=== PATIENT | male | born 1955 | race Caucasian/White ===

== ENCOUNTER → 2016-08-05 | Outpatient (CLI) | payer BC ==
[~2016-08-05] MED LIST: AGM875 PO; AMX500 PO; LRT5 PO; PRLSR20 PO
--- NOTE | 2016-08-05 14:53 | DIAGNOSTIC IMAGING REPORT ---
LUMBAR SPINE MIN 4 VIEWS CLINICAL HISTORY: SUBACUTE LUMBAR RADICULOPATHY COMPARISON STUDY: No previous studies for comparison. FINDINGS: There is a mild lumbar levoscoliosis. No fractures are visualized. There are multilevel degenerative changes with disc space narrowing at the L3-4, L4-5 level and L5-S1 levels. There is mild L4-5 and L5-S1 facet joint arthropathy. IMPRESSION: Scoliosis and moderate degenerative change. No acute fractures. Electronically signed by: Robinson Chau M.D. 08/05/2016 2:51 PM Dictated Date/Time: 08/05/2016 2:50 PM
--- NOTE | 2016-08-05 14:54 | DIAGNOSTIC IMAGING REPORT ---
LEFT KNEE 4 VIEWS INCLUDING BILATERAL STANDING AP VIEWS CLINICAL HISTORY: LEFT KNEE PAIN/OSTEOARTHRITIS COMPARISON: None. DISCUSSION: There are moderate osteoarthritic changes with marked narrowing of the medial joint compartment. There are small dorsal patellar spurs. There are no acute fractures. No destructive lesions are evident. Medial joint compartment narrowing the right knee is also evident although less pronounced. IMPRESSION: Moderately advanced osteoarthritic change. No acute fractures. Electronically signed by: Robinson Chau M.D. 08/05/2016 2:53 PM Dictated Date/Time: 08/05/2016 2:52 PM
== END | disposition home or self-care (01) ==
LOC: C.RDSM 15:15
PROVIDERS: ATTEND Physical Medicine & Rehabilitation Sports Medicine
DX: M54.16 Radiculopathy, lumbar region (principal); M17.9 Osteoarthritis of knee, unspecified; M41.9 Scoliosis, unspecified

== ENCOUNTER → 2016-08-05 | Outpatient (CLI) | payer BC ==
[2016-08-05 20:39] LABS: LYME DISEASE AB IGG POS (NEG); LYME DISEASE AB IGM POS (NEG)
[2016-08-11 05:12] LABS: 18KDIGG BAND REACTIVE (NONREACTIVE); 23KDIGG BAND REACTIVE (NONREACTIVE); 23KDIGM BAND REACTIVE (NONREACTIVE); 28KDIGG BAND NONREACTIVE (NONREACTIVE); 30KDIGG BAND NONREACTIVE (NONREACTIVE); 39KDIGG BAND REACTIVE (NONREACTIVE); 39KDIGM BAND NONREACTIVE (NONREACTIVE); 41KDIGG BAND NONREACTIVE (NONREACTIVE); 41KDIGM BAND REACTIVE (NONREACTIVE); 45KDIGG BAND NONREACTIVE (NONREACTIVE); 58KDIGG BAND REACTIVE (NONREACTIVE); 66KDIGG BAND REACTIVE (NONREACTIVE); 93KDIGG BAND REACTIVE (NONREACTIVE)
== END | disposition home or self-care (01) ==
LOC: C.LAB1850 15:19
PROVIDERS: ATTEND Physical Medicine & Rehabilitation Sports Medicine
DX: M17.0 Bilateral primary osteoarthritis of knee (principal); M54.16 Radiculopathy, lumbar region; M79.604 Pain in right leg

== ENCOUNTER 2020-09-05 04:48 | Inpatient (IN) ==
[2020-09-05] MEDS ORDERED: ONDANSETRON INJ 2 MG/ML 2 ML VIAL IV STA (04:54)
[2020-09-05] MEDS ORDERED: SODIUM CHLORIDE 0.9% 1000ML 1,000 ML IV STA (04:54)
[2020-09-05] MEDS ORDERED: MoRPHine SULFATE 4 MG/ML 1 ML CARP\\VIAL IV STA ×2 (05:01→05:30)
[2020-09-05] MEDS ORDERED: KETOROLAC TROMETHAMINE 15 MG/ML VIAL IV STA (05:01)
--- NOTE | 2020-09-05 05:16 | Emergency Department Note ---
History of Present Illness General Chief complaint: Abdominal Pain Stated complaint: LT SIDED ABD PAIN Time Seen by Provider: 09/05/20 05:01 History of Present Illness Maximum Pain Intensity: 10 This 64-year-old presents to the ER complaining of sudden onset of left lower abdominal pain Location: Left lower quadrant Quality: Sharp Severity: Moderate Duration: Tonight Timing: Tonight Context: Pain persisted and patient given Modifying factors: better with nothing; worse with nothing No history of kidney stones or diverticulitis. Patient denies chest pain, dyspnea, fevers, vomiting, diarrhea, testicular pain, penile pain, back pain, flank pain, urinary symptoms. Home Medications Medication Instructions Recorded Confirmed Type omeprazole 20 mg PO UD PRN 04/03/18 09/05/20 History Allergies Allergy/AdvReac Type Severity Reaction Status Date / Time No Known Allergies Allergy Mild Verified 09/05/20 07:26 Past Med/Surg History Medical History GERD (gastroesophageal reflux disease) CONTROLLED Gout Hiatal hernia Hypertension "BORDERLINE"- NO MEDS Hypertriglyceridemia Obesity ZAIDA (obstructive sleep apnea) Osteoarthritis Umbilical hernia Surgical History H/O umbilical hernia repair History of arthroscopy LEFT KNEE History of cholecystectomy History of herniorrhaphy UMBILICAL Family History Mother Lung cancer Father Unknown cause of injury unknown cause of Social History Smoking Status: Never smoker Tobacco Type: Smokeless Tobacco (Dip or Chew) Second Hand Exposure: No; Hx Alcohol Use: Yes Alcohol type: beer Alcohol Intake Frequency Comment: couple of beers per day, 12 cans roughly on the weekend Hx Substance Use: No Preferred Language: Sierra Leonean Communication Ability: Effective Visual Impairment: No Limitations [place] Required: No Beliefs That Will Affect Care: None Current Living Situation: Spouse Feels Safe at Home: Yes Assistive Devices: Brace/Splint/Immobilizer and Walker Review of Systems A total of 10 systems reviewed and were otherwise negative Physical Exam Vital Signs Vital Signs - 24 hr 09/05/20 04:51 09/05/20 05:18 09/05/20 05:38 Temperature 36.2 C L Temperature Source Temporal Artery Scan Pulse Rate 85 74 Pulse Rate [Apical] Pulse Rate from SpO2 Sensor 75 Respiratory Rate 22 16 Respiratory Effort / Characteristics Respiratory Depth Normal Respiratory Pattern Blood Pressure 170/88 H Blood Pressure [Right Arm] Blood Pressure Mean 115 Blood Pressure Mean [Right Arm] Blood Pressure Position [Right Arm] Pulse Oximetry 96 97 91 Oxygen Delivery Method Room Air Room Air Oxygen Flow Rate Sepsis New/Unexplained Change in Mental Status N/A Sepsis Action Taken by Nursing No Action Required 09/05/20 05:55 09/05/20 05:58 09/05/20 06:00 Temperature Temperature Source Pulse Rate 67 66 Pulse Rate [Apical] 70 Pulse Rate from SpO2 Sensor 66 66 Respiratory Rate 19 16 17 Respiratory Effort / Characteristics Non-Labored Spontaneous Respiratory Depth Normal Respiratory Pattern Regular Blood Pressure 160/96 H 165/96 H Blood Pressure [Right Arm] 160/96 H Blood Pressure Mean 117 119 Blood Pressure Mean [Right Arm] 117 Blood Pressure Position [Right Arm] Pulse Oximetry 93 93 90 Oxygen Delivery Method Room Air Oxygen Flow Rate Sepsis New/Unexplained Change in Mental Status Sepsis Action Taken by Nursing 09/05/20 06:17 09/05/20 06:19 09/05/20 06:30 Temperature Temperature Source Pulse Rate 67 70 Pulse Rate [Apical] 65 Pulse Rate from SpO2 Sensor 67 69 Respiratory Rate 18 16 14 Respiratory Effort / Characteristics Non-Labored Spontaneous Respiratory Depth Normal Respiratory Pattern Regular Blood Pressure 126/77 Blood Pressure [Right Arm] 126/77 Blood Pressure Mean 93 Blood Pressure Mean [Right Arm] 93 Blood Pressure Position [Right Arm] Lying Pulse Oximetry 92 93 96 Oxygen Delivery Method Nasal Cannula Oxygen Flow Rate 2 Sepsis New/Unexplained Change in Mental Status Sepsis Action Taken by Nursing 09/05/20 07:00 09/05/20 07:01 09/05/20 07:30 Temperature Temperature Source Pulse Rate 67 67 63 Pulse Rate [Apical] Pulse Rate from SpO2 Sensor 67 66 64 Respiratory Rate 18 14 12 Respiratory Effort / Characteristics Respiratory Depth Respiratory Pattern Blood Pressure 136/76 Blood Pressure [Right Arm] Blood Pressure Mean 96 Blood Pressure Mean [Right Arm] Blood Pressure Position [Right Arm] Pulse Oximetry 93 95 94 Oxygen Delivery Method Oxygen Flow Rate Sepsis New/Unexplained Change in Mental Status Sepsis Action Taken by Nursing VITALS: Vitals are noted on the nurse's note and reviewed by myself. Vital signs stable. GENERAL: Pleasant male, in no acute distress, nondiaphoretic, well-developed well-nourished. SKIN: Capillary reflex less than 2 seconds. HEENT: Normocephalic. PERRLA. EOMI. Nares patent. Mucous membranes moist. Neck is supple without nuchal rigidity. HEART: Regular rate and rhythm LUNGS: Clear to auscultation bilaterally without wheezes, rales or rhonchi. No retractions or accessory muscle use. ABDOMEN: Positive bowel sounds x 4. Normal tympanic percussion. Soft, nontender, without masses or organomegaly. Cadet sign negative. No guarding or rebound tenderness. No CVA tenderness MUSCULOSKELETAL: No gross musculoskeletal defects. NEURO: Patient was alert and oriented to person place and time. No focal neurological deficits. Course Administered Medications Discontinued Medications Hydromorphone HCl (Hydromorphone Inj 1 Mg/Ml Syringe) 1 mg IV NOW STA Stop: 09/05/20 07:05 Last Admin: 09/05/20 07:12 Dose: 1 mg Documented by: [id number] Sodium Chloride (Nss 1000ml) 1,000 mls @ 999 mls/hr IV .Q1H1M STA Stop: 09/05/20 05:54 Last Infusion: 09/05/20 06:12 Dose: 0 mls/hr Documented by: [id number] Admin: 09/05/20 05:11 Dose: 999 mls/hr Documented by: [id number] Ketorolac Tromethamine (Ketorolac Tromethamine 15 Mg/Ml Vial) 10 mg IV NOW STA Stop: 09/05/20 05:02 Last Admin: 09/05/20 05:11 Dose: 10 mg Documented by: [id number] Morphine Sulfate (Morphine Sulfate 4 Mg/Ml 1 Ml Carp\\Vial) 4 mg IV NOW STA Stop: 09/05/20 05:02 Last Admin: 09/05/20 05:11 Dose: 4 mg Documented by: [id number] Morphine Sulfate (Morphine Sulfate 4 Mg/Ml 1 Ml Carp\\Vial) 4 mg IV NOW STA Stop: 09/05/20 05:31 Last Admin: 09/05/20 05:33 Dose: 4 mg Documented by: [id number] Ondansetron HCl (Ondansetron Inj 2 Mg/Ml 2 Ml Vial) 4 mg IV NOW STA Stop: 09/05/20 04:55 Last Admin: 09/05/20 05:11 Dose: 4 mg Documented by: [id number] Medical Decision Making Medical Records Attestation: I reviewed the patient's medical records. Home Medications Current Medication List: was personally reviewed by me Laboratory Data Attestation: I reviewed the patient's lab results. Result diagrams: 09/05/20 05:01 09/05/20 05:01 Lab Results 09/05/20 09/05/20 09/05/20 Range/Units 05:01 05:01 05:01 WBC 8.15 (4.8-10.8) K/uL RBC 5.09 (4.7-6.1) M/uL Hgb 16.3 (14.0-18.0) g/dL Hct 44.2 (42-52) % MCV 86.8 (80-100) fL MCH 32.0 (25-34) pg MCHC 36.9 H (32-36) g/dL RDW Std Deviation 41.1 (36.4-46.3) fL RDW Coeff of [place] 12.8 (11.5-14.5) % Plt Count 272 (130-400) K/uL MPV 9.7 (7.4-10.4) fL Immature Gran % (Auto) 0.2 % Neut % (Auto) 81.9 % Lymph % (Auto) 10.1 % Will % (Auto) 7.2 % Eos % (Auto) 0.4 % Baso % (Auto) 0.2 % Neut # (Auto) 6.67 H (1.4-6.5) K/uL Lymph # (Auto) 0.82 L (1.2-3.4) K/uL Will # (Auto) 0.59 (0.11-0.59) K/uL Eos # (Auto) 0.03 (0-0.5) K/uL Baso # (Auto) 0.02 (0-0.2) K/uL Immature Gran # (Auto) 0.02 (0.00-0.02) K/uL Sodium 137 (136-145) mmol/L Potassium 4.4 (3.5-5.1) mmol/L Chloride 105 (98-107) mmol/L Carbon Dioxide 26 (21-32) mmol/L Anion Gap 6.0 (3-11) BUN 13 (7-18) mg/dl Creatinine 1.17 (0.6-1.4) mg/dl Est Cr Clr Drug Dosing 87.1 ml/min Est GFR ( Amer) 76.4 Est GFR (Non-Af Amer) 66.0 BUN/Creatinine Ratio 11.4 (10-20) Glucose 131 H (70-99) mg/dl Calcium 9.1 (8.5-10.1) mg/dl Total Bilirubin 1.0 (0.2-1) mg/dl AST 42 H (15-37) U/L ALT 79 H (12-78) U/L Alkaline Phosphatase 86 (45-117) U/L Total Protein 9.1 H (6.4-8.2) gm/dl Albumin 4.3 (3.4-5.0) gm/dl Globulin 4.8 H (2.5-4.0) gm/dl Albumin/Globulin Ratio 0.9 (0.9-2) Urine Color Yellow Urine Appearance Clear (Clear) Urine pH 5.5 (4.5-7.5) Ur Specific [place] 1.018 (1.000-1.030) Urine Protein Negative (Negative) Urine Glucose (UA) Negative (Negative) Urine Ketones 1+ H (Negative) Urine Blood 2+ H (Negative) Urine Nitrite Negative (Negative) Urine Bilirubin Negative (Negative) Urine Urobilinogen Negative (Negative) Ur Leukocyte Esterase Negative (Negative) Urine WBC (Auto) 1-5 (0-5) /hpf Urine RBC (Auto) >30 H (0-4) /hpf U Hyaline Cast (Auto) 0 (0-5) /lpf U Epithel Cells (Auto) 0-5 (0-5) /lpf Urine Bacteria (Auto) Negative (Negative) COVID-19 Eval Order 09/05/20 Range/Units 07:15 WBC (4.8-10.8) K/uL RBC (4.7-6.1) M/uL Hgb (14.0-18.0) g/dL Hct (42-52) % MCV (80-100) fL MCH (25-34) pg MCHC (32-36) g/dL RDW Std Deviation (36.4-46.3) fL RDW Coeff of [place] (11.5-14.5) % Plt Count (130-400) K/uL MPV (7.4-10.4) fL Immature Gran % (Auto) % Neut % (Auto) % Lymph % (Auto) % Will % (Auto) % Eos % (Auto) % Baso % (Auto) % Neut # (Auto) (1.4-6.5) K/uL Lymph # (Auto) (1.2-3.4) K/uL Will # (Auto) (0.11-0.59) K/uL Eos # (Auto) (0-0.5) K/uL Baso # (Auto) (0-0.2) K/uL Immature Gran # (Auto) (0.00-0.02) K/uL Sodium (136-145) mmol/L Potassium (3.5-5.1) mmol/L Chloride (98-107) mmol/L Carbon Dioxide (21-32) mmol/L Anion Gap (3-11) BUN (7-18) mg/dl Creatinine (0.6-1.4) mg/dl Est Cr Clr Drug Dosing ml/min Est GFR ( Amer) Est GFR (Non-Af Amer) BUN/Creatinine Ratio (10-20) Glucose (70-99) mg/dl Calcium (8.5-10.1) mg/dl Total Bilirubin (0.2-1) mg/dl AST (15-37) U/L ALT (12-78) U/L Alkaline Phosphatase (45-117) U/L Total Protein (6.4-8.2) gm/dl Albumin (3.4-5.0) gm/dl Globulin (2.5-4.0) gm/dl Albumin/Globulin Ratio (0.9-2) Urine Color Urine Appearance (Clear) Urine pH (4.5-7.5) Ur Specific [place] (1.000-1.030) Urine Protein (Negative) Urine Glucose (UA) (Negative) Urine Ketones (Negative) Urine Blood (Negative) Urine Nitrite (Negative) Urine Bilirubin (Negative) Urine Urobilinogen (Negative) Ur Leukocyte Esterase (Negative) Urine WBC (Auto) (0-5) /hpf Urine RBC (Auto) (0-4) /hpf U Hyaline Cast (Auto) (0-5) /lpf U Epithel Cells (Auto) (0-5) /lpf Urine Bacteria (Auto) (Negative) COVID-19 Eval Order CovFluRsv at [facility] Imaging Data Attestation: I personally reviewed and interpreted this imaging study as follows: MDM Narrative Prior records/ancillary studies reviewed. Triage Nursing notes reviewed. Additional history obtained from nursing. The patient's history was concerning for abdominal pain. Differential diagnosis: Etiologies such as appendicitis, diverticulitis, PUD, biliary pathology, UTI, pancreatitis, obstruction, mesenteric ischemia, aortic pathology, infections, inflammatory bowel disease, renal colic, as well as others were entertained. Physical examination findings: As above. ER treatment provided: An order was placed for continuous cardiac monitoring. The monitor shows a rate of 60-100 with a sinus rhythm. IV fluids, Toradol, morphine, Zofran On reassessment the patient felt better. Diagnostics interpreted by me: The labs revealed hematuria. No signs of infection. Stable H&H Imaging studies: CT ABDOMEN & PELVIS Without Contrast: Mild left hydronephrosis and hydroureter down to a 3 mm calculus at the left ureterovesicular junction. The urinary bladder is decompressed but otherwise unremarkable. Bowel loops are nondilated. There is diverticulosis of the lower left and sigmoid colon. The appendix is normal. No acute inflammatory changes are seen involving the bowel. Fatty infiltration of the liver and hepatomegaly with the liver measuring 18 cm. No focal liver lesion is seen. Previous cholecystectomy. Moderate degenerative changes in the lower lumbar spine. No acute fracture or subluxation is seen. There is mild to moderate spinal stenosis greatest at L3-4 which measures 6-7 mm. 6.8 cm hiatal hernia. Radiologist: Joel Herrera MD Consultation: [facility] The case was discussed and diagnostics were reviewed. The patient was evaluated in the ER for further treatment. Exam and history seem consistent with kidney stone with intractable pain. Patient still had persistent pain. Patient is requesting admission. Medicine was consulted. By the evaluation outlined above emergent etiologies such as appendicitis, diverticulitis, PUD, biliary pathology, UTI, pancreatitis, obstruction, mesenteric ischemia, aortic pathology, infections, inflammatory bowel disease, as well as others were deemed relatively unlikely. The pt informed about the findings as listed above. All questions were answered and pleased with the treatment. The chart was completed utilizing [employer] voice recognition software. Grammatical errors, random word insertions, pronoun errors, and incomplete sentences are an occassional consequence of this system due to software limitations, ambient noise, and hardware issues. Any formal questions or concerns about the content, text, or information contained within the body of this dictation should be directly addressed to the physician speech language pathology assistant for clarification. Impression & Plan Renal colic on left side, Ureterolithiasis Discharge Plan Visit Data Chief Complaint: Abdominal Pain Stated Complaint: LT SIDED ABD PAIN ED Provider: Todd Grullon ED Midlevel Provider: Patricia Álvarez Discharge Problem: Renal colic on left side, Ureterolithiasis Patient Disposition: Admitted As Inpatient Condition: Good Forms Stand Alone Forms: [employer] Prescriptions Prescriptions: No Action omeprazole 20 mg Tablet,Disintegrat, Delay Rel 20 mg PO UD PRN (Reason: Acid Reflux) RF: 0 Referrals Referrals: Reji Whitehead MD [Primary Care Provider] -
[2020-09-05 05:18] LABS: Basophils # (auto) 0.02 K/uL (0-0.2); Basophils % (auto) 0.2 %; Eosinophils # (auto) 0.03 K/uL (0-0.5); Eosinophils % (auto) 0.4 %; Hematocrit (blood only) 44.2 % (42-52); Hemoglobin 16.3 g/dL (14.0-18.0); Immature Granulocytes # (auto) 0.02 K/uL (0.00-0.02); Immature Granulocytes % (auto) 0.2 %; Lymphocytes # (auto) 0.82 K/uL (1.2-3.4); Lymphocytes % (auto) 10.1 %; Mean Corpuscular Hgb Conc 36.9 g/dL (32-36); Mean Corpuscular Volume 86.8 fL (80-100); Mean Platelet Volume 9.7 fL (7.4-10.4); Monocytes # (auto) 0.59 K/uL (0.11-0.59); Monocytes % (auto) 7.2 %; Neutrophils # (auto) 6.67 K/uL (1.4-6.5); Neutrophils % (auto) 81.9 %; Platelet Count 272 K/uL (130-400); RDW Coefficient of Variation 12.8 % (11.5-14.5); RDW Standard Deviation 41.1 fL (36.4-46.3); Red Blood Count 5.09 M/uL (4.7-6.1); White Blood Count 8.15 K/uL (4.8-10.8)
[2020-09-05 05:31] LABS: Appearance Urine Clear (Clear); Bacteria Urine Automated Negative (Negative); Bilirubin Urine Negative (Negative); Blood Urine 2+ (Negative); Cast Urine Automated 0 /lpf (0-5); Color Urine Yellow; Epithelial Cell Urine Auto 0-5 /lpf (0-5); Glucose Urine UA Negative (Negative); Ketones Urine 1+ (Negative); Leukocyte Esterase Urine Negative (Negative); Nitrite Urine Negative (Negative); Protein Urine Negative (Negative); RBC Urine Automated >30 /hpf (0-4); Specific Gravity Urine 1.018 (1.000-1.030); Urobilinogen Urine Negative (Negative); pH Urine 5.5 (4.5-7.5)
[2020-09-05 05:35] LABS: Albumin Level 4.3 gm/dl (3.4-5.0); BUN Creatinine Ratio 11.4 (10-20); Calcium 9.1 mg/dl (8.5-10.1); Creatinine Clr Calc Pharmacy 87.1 ml/min; Est GFR (African American) 76.4; Potassium 4.4 mmol/L (3.5-5.1)
[2020-09-05 05:37] LABS: Albumin Globulin Ratio 0.9 (0.9-2); Globulin 4.8 gm/dl (2.5-4.0); Total Protein 9.1 gm/dl (6.4-8.2)
[2020-09-05] MEDS ORDERED: HYDROmorphone INJ 1 MG/ML SYRINGE IV STA (07:04)
--- NOTE | 2020-09-05 07:59 | History & Physical Report ---
Date of Service September 05, 2020 Assessment & Plan (1) Ureteral colic: Ureteral colic secondary to left ureteral calculus, approximately [address] scan with hydronephrosis. No evidence of MAX or urinary tract infection. Symptom onset last night approximately 10 PM. No history of kidney stones in the past. Patient is a significant alcohol user and drinks 2 green teas daily. Currently n.p.o. pending urology consultation in case of procedure. (2) Left ureteral calculus: Plan as above, Flomax added, continue his IV fluids, strain all urine. Pain medications and antiemetics as needed. (3) EtOH dependence: Alcohol withdrawal monitoring on floor with ativan prn (4) GERD (gastroesophageal reflux disease): Protonix daily (5) ZAIDA (obstructive sleep apnea): Uses nasal CPAP at home. Cannot tolerate full facemask. Offered to have home CPAP brought in, but patient currently declines. (6) Obesity: Lifestyle modifications recommended to decrease adipose tissue and increased lean muscle mass. (7) DVT prophylaxis: Lovenox currently on hold in case of procedure Full Code Dispo-to home after definitive stone management. Tootie Munroe DO [facility] Hospitalist History of Present Illness Chief Complaint: Left-sided flank pain, left groin pain x1 day Primary Care Provider: Reji Whitehead MD The patient is a 64-year-old man with no prior history of nephrolithiasis who presents with acute left flank and groin pain that began approximately 10 PM last evening. He reports apathy to food and some nausea secondary to the extreme pain. Despite multiple doses of narcotics in the ER, the pain is still poorly controlled. He admits to drinking excessively on a daily basis and she uses beer as drink of choice. He has obstructive sleep apnea and reports intermittent compliance with his nasal CPAP mask. He cannot tolerate full facemask. He denies any gross blood in the urine, fevers, chills, chest pain, or shortness of breath. He denies any other UTI symptoms and on initial urinalysis has no evidence of infection in his urine . CT scan of the abdomen pelvis performed in the ER reveals a 3 mm distal left ureteral calculus resulting in mild hydroureteronephrosis with punctate left renal calculus. Hepatic steatosis is also present. He was admitted to the hospitalist service and urology was consulted for definitive stone management. Allergies Allergy/AdvReac Type Severity Reaction Status Date / Time No Known Allergies Allergy Mild Verified 09/05/20 07:26 Home Medications Medication Instructions Recorded Confirmed Type omeprazole 20 mg PO UD PRN 04/03/18 09/05/20 History Past Med/Surg History Medical History GERD (gastroesophageal reflux disease) CONTROLLED Gout Hiatal hernia Hypertension "BORDERLINE"- NO MEDS Hypertriglyceridemia Obesity ZAIDA (obstructive sleep apnea) Osteoarthritis Umbilical hernia Surgical History H/O umbilical hernia repair History of arthroscopy LEFT KNEE History of cholecystectomy History of herniorrhaphy UMBILICAL Family History Mother Lung cancer Father Unknown cause of injury unknown cause of Social History Smoking Status: Never smoker Tobacco Type: Smokeless Tobacco (Dip or Chew) Second Hand Exposure: No; Hx Alcohol Use: Yes Alcohol type: beer Alcohol Intake Frequency Comment: couple of beers per day, 12 cans roughly on the weekend Hx Substance Use: No Preferred Language: Ukrainian Communication Ability: Effective Visual Impairment: No Limitations Dispatch Supervisor Required: No Beliefs That Will Affect Care: None Current Living Situation: Spouse Feels Safe at Home: Yes Assistive Devices: Brace/Splint/Immobilizer and Walker Review of Systems Review of Systems: All systems reviewed & are unremarkable except as noted in HPI & below Physical Exam Physical Exam: CONSTITUTIONAL: obese, vitals as above, moderate distress EYES: normal conjunctivae, no scleral icterus ENT: external ear and nose normal, mucous membranes dry NECK: trachea midline, no lymphadenopathy RESPIRATORY: clear to auscultation bilaterally, no crackles, rales or wheezes, normal respiratory effort CARDIOVASCULAR: regular rate and rhythm, S1 and 2 heard without murmurs, gallops or rubs, no JVD, no peripheral edema CHEST: inspection of chest was normal (+pacemaker, +port) GASTROINTESTINAL: soft, TTP in LLQ, L CVA tenderness, protuberant but nondistended, no guarding MUSCULOSKELETAL: strength 5/5 throughout, head is normocephalic and atraumatic SKIN: warm and dry NEUROLOGIC: CN 2-12 grossly intact, no sensory deficit, normal cognition, normal speech, no gross focal deficits. PSYCHIATRIC: alert cooperative and oriented to person, place and time. Results & Data Results & Data ([facility]) Vital Signs (Past 12 Hours) Vital Signs Temp Pulse Pulse Resp BP BP Pulse Ox 09/05/20 07:30 63 12 94 09/05/20 07:01 67 14 95 09/05/20 07:00 67 18 136/76 93 09/05/20 06:30 70 14 96 09/05/20 06:19 65 16 126/77 93 09/05/20 06:17 67 18 126/77 92 09/05/20 06:00 66 17 165/96 H 90 09/05/20 05:58 70 16 160/96 H 93 09/05/20 05:55 67 19 160/96 H 93 09/05/20 05:38 74 16 91 09/05/20 05:18 97 09/05/20 04:51 36.2 C L 85 22 170/88 H 96 Laboratory Results Short CBC 09/05/20 Range/Units 05:01 WBC 8.15 (4.8-10.8) K/uL Hgb 16.3 (14.0-18.0) g/dL Hct 44.2 (42-52) % Plt Count 272 (130-400) K/uL BMP 09/05/20 05:01 Sodium 137 Potassium 4.4 Chloride 105 Carbon Dioxide 26 BUN 13 Creatinine 1.17 Glucose 131 H Calcium 9.1 Liver Function 09/05/20 Range/Units 05:01 Total Bilirubin 1.0 (0.2-1) mg/dl AST 42 H (15-37) U/L ALT 79 H (12-78) U/L Alkaline Phosphatase 86 (45-117) U/L Albumin 4.3 (3.4-5.0) gm/dl Urine 09/05/20 Range/Units 05:01 Urine Color Yellow Urine Appearance Clear (Clear) Urine pH 5.5 (4.5-7.5) Ur Specific [place] 1.018 (1.000-1.030) Urine Protein Negative (Negative) Urine Glucose (UA) Negative (Negative) Medications Administered hydromorphone 1mg IV x 1 dose Morphien 4mg IV x 2 doses Toradol 10mg IV x 1 dose Ondansetron 4mg IV x 1 dose NSS 1L Code Status & VTE Plan VTE Prophylaxis Plan VTE Prophylaxis will be ordered: Yes
[2020-09-05 08:15] LABS: Influenza A virus by PCR Negative (Neg); Influenza B virus by PCR Negative (Neg); RSV by PCR Negative (Neg); SARS CoV2 RNA(COVID-19) InHosp NEGATIVE (Negative)
--- NOTE | 2020-09-05 08:23 | CT Scan Report ---
CT OF THE ABDOMEN AND PELVIS WITHOUT CONTRAST CLINICAL HISTORY: Left lower quadrant abdominal pain. COMPARISON STUDY: CT of the abdomen and pelvis March 28, 2010. TECHNIQUE: Axial images of the abdomen and pelvis were obtained without IV contrast. Images were revi ewed in the axial, sagittal, and coronal planes. Automated exposure control was utilized for the garrett dy. A dose lowering technique was utilized adhering to the principles of ALARA. FINDINGS: A calcified granuloma within the left lower lobe is incidentally noted. There is a small hi atal hernia. A 3 mm distal left ureteral calculus just proximal to the ureterovesical junction result s in mild left hydroureteronephrosis with perinephric and periureteral infiltration. There is a punct ate left calculus. No right hydronephrosis is noted. A 2.7 cm water attenuation left renal lesion is suboptimally assessed on this unenhanced exam but favors a cyst. There is no biliary ductal dilatatio n status post cholecystectomy. Hepatic steatosis is noted. There is no evidence for a bowel obstructi on. Colonic diverticulosis is noted without evidence for acute diverticulitis. The appendix is normal . There is no lymphadenopathy. There is no ascites. No suspicious osseous lesions are identified with in the visualized skeletal structures. IMPRESSION: 1. 3 mm distal left ureteral calculus results in mild hydroureteronephrosis. 2. Punctate left renal calculus. 3. Hepatic steatosis. ACT 112: Negative or not required by law. Electronically signed by: Theo Nunez M.D. 09/05/2020 8:21 AM
[2020-09-05] MEDS ORDERED: SODIUM CHLORIDE 0.9% 1000ML 1,000 ML IV SCH (10:07)
[2020-09-05] MEDS ORDERED: THIAMINE HCL 100 MG TAB PO SCH (10:07)
[2020-09-05] MEDS ORDERED: PANTOprazole 40 MG TAB PO SCH (10:07)
[2020-09-05] MEDS ORDERED: HYDROmorphone INJ 0.5 MG/0.5 ML SYR IV PRN (10:07)
[2020-09-05] MEDS ORDERED: KETOROLAC TROMETHAMINE 15 MG/ML VIAL IV PRN (10:07)
[2020-09-05] MEDS ORDERED: PROMETHAZINE HCL 25 MG TAB PO PRN (10:07)
[2020-09-05] MEDS ORDERED: TAMSULOSIN HCL 0.4 MG CAP PO SCH (10:07)
[2020-09-05] MEDS ORDERED: FOLIC ACID 1 MG TAB PO SCH (10:07)
[2020-09-05] MEDS ORDERED: LORazepam 1 MG TAB PO PRN (10:07)
[2020-09-05] MEDS ORDERED: KETOROLAC 30 MG/ML VIAL IV PRN (10:30)
[2020-09-05] MEDS ORDERED: MULTI-VITAMIN INFUSION 10 ML, THIAMINE HCL 100 MG, FOLIC ACID 1 MG in SODIUM CHLORIDE 0... IV ONE (10:30)
--- NOTE | 2020-09-05 10:33 | Urology Consultation ---
Date of Consultation September 05, 2020 Assessment & Plan (1) Left ureteral calculus: Patient with small obstructing distal ureteral stone causing considerable discomfort with nausea. Patient is admitted for observation and close monitoring. Recommend maximum expulsion therapy with increased hydration including IV fluids, medications for symptom control including Toradol, utilization of tamsulosin for discomfort/increase chance of passage, and observation. Did discuss possible surgical intervention. If patient's pain and issues can get controlled and as long as he does not develop severe fevers or signs of renal failure would recommend continue with observation and conservative measu res with maximum expulsion therapy. Patient's complicated medical and surgical history is reviewed and summarized above. Patient's imaging with CT scan was reviewed and interpreted by myself. Patient has a distal small 3 mm ureteral stone. We will plan for close monitoring. If patient does develop increasing issues may need urgent/emergent surgery but at this point would continue with support rufus care History of Present Illness Attending Physician: Tootie Munroe DO History of Present Illness New consultation for patient with stone, discomfort, obstruction, and ill feelings. Patient developed sudden onset of pain into flank going down and radiating into groin and back in waves comes and goes. Can be severe at times. Patient has become increasingly worse over time. Has noticed minor improvement with medications. Discussed and reviewed patient's family history for any history of stone disease. Does not know of any other family members with stone disease. Also, discussed patient's medical surgery history especially related to any history of urinary issues or stone disease. Patient was admitted and is undergoing observation. Allergies Allergy/AdvReac Type Severity Reaction Status Date / Time No Known Allergies Allergy Mild Verified 09/05/20 07:26 Home Medications Medication Instructions Recorded Confirmed Type omeprazole 20 mg PO UD PRN 04/03/18 09/05/20 History Patient History Medical History GERD (gastroesophageal reflux disease) CONTROLLED Gout Hiatal hernia Hypertension "BORDERLINE"- NO MEDS Hypertriglyceridemia Obesity ZAIDA (obstructive sleep apnea) Osteoarthritis Umbilical hernia Surgical History H/O umbilical hernia repair History of arthroscopy LEFT KNEE History of cholecystectomy History of herniorrhaphy UMBILICAL Family History Mother Lung cancer Father Unknown cause of injury unknown cause of Social History Smoking Status: Never smoker Tobacco Type: Smokeless Tobacco (Dip or Chew) Second Hand Exposure: No; Hx Alcohol Use: Yes Alcohol type: beer Alcohol Intake Frequency Comment: couple of beers per day, 12 cans roughly on the weekend Hx Substance Use: No Preferred Language: [place] Communication Ability: Effective Visual Impairment: No Limitations Sheet Metal Former Required: No Beliefs That Will Affect Care: None Current Living Situation: Spouse Other Information That Helps Us Care for You: No Feels Safe at Home: Yes Safety Concerns: Feels Safe At This Time Assistive Devices: Brace/Splint/Immobilizer and Walker Review of Systems Review of Systems: All systems reviewed & are unremarkable except as noted in HPI & below Physical Exam Physical Exam: General: Alert and oriented x 3 in no acute distress. Patient is well nourished and well kept. HEENT: Normocephalic Atraumatic. Inspection normal. Cranial Nerves 2-12 Grossly intact. Nares are clear. Neck is supple. Normal inspection of face. Normal inspection of neck. Neurologic: No deficits on inspection. Baseline for motor function and sensory. Psychologic: Normal affect. Respiratory: Nonlabored. No use of accessory muscles. No tachypnea or dyspnea. Cardiovascular: No tachycardia Skin: Zeigler and Dry. No rashes or visible lesions. Extremities: Moving without issues. No motor deficits on inspection Lymphatics: No edema Abdomen: Soft Non-distended. No acites. No rebound or guarding. Obese Results & Data ([facility]) Vital Signs (Past 12 Hours) Vital Signs Temp Pulse Pulse Pulse Resp BP BP 09/05/20 09:55 36.5 C 63 20 176/93 H 09/05/20 09:44 36.8 C 66 18 172/97 H 09/05/20 09:31 82 17 172/97 H 09/05/20 09:30 66 17 09/05/20 09:00 61 16 154/94 H 09/05/20 08:49 60 16 176/105 H 09/05/20 08:30 60 16 09/05/20 08:01 62 18 09/05/20 08:00 60 18 149/88 H 09/05/20 07:30 63 12 09/05/20 07:01 67 14 09/05/20 07:00 67 18 136/76 09/05/20 06:30 70 14 09/05/20 06:19 65 16 126/77 09/05/20 06:17 67 18 126/77 09/05/20 06:00 66 17 165/96 H 09/05/20 05:58 70 16 160/96 H 09/05/20 05:55 67 19 160/96 H 09/05/20 05:38 74 16 09/05/20 05:18 09/05/20 04:51 36.2 C L 85 22 170/88 H Pulse Ox 09/05/20 09:55 96 09/05/20 09:44 96 09/05/20 09:31 96 09/05/20 09:30 92 09/05/20 09:00 93 09/05/20 08:49 94 09/05/20 08:30 93 09/05/20 08:01 95 09/05/20 08:00 93 09/05/20 07:30 94 09/05/20 07:01 95 09/05/20 07:00 93 09/05/20 06:30 96 09/05/20 06:19 93 09/05/20 06:17 92 09/05/20 06:00 90 09/05/20 05:58 93 09/05/20 05:55 93 09/05/20 05:38 91 09/05/20 05:18 97 09/05/20 04:51 96 PG Care Time/CCT Total # of Minutes Spent Total Time Spent with Patient: Total time spent is greater than 50% in coordination of care (as documented) at patient's floor/unit and/or counseling patient: Coding Level of Care Code 30103 Inpt Consult Level 5 Diagnoses Left ureteral calculus N20.1
--- NOTE | 2020-09-05 10:42 | Electrocardiogram Report ---
Test Reason : Blood Pressure : / mmHG Vent. Rate : 064 BPM Atrial Rate : 064 BPM P-R Int : 192 ms QRS Dur : 090 ms QT Int : 406 ms P-R-T Axes : 040 068 042 degrees QTc Int : 418 ms Normal sinus rhythm Normal ECG When compared with ECG of 09-APR-2018 09:55, No significant change was found Confirmed by Mario Pena ([id number]) on 09/05/2020 10:42:44 AM Referred By: REFERRED SELF Confirmed By:Mario Pena
[2020-09-05] MEDS ORDERED: ONDANSETRON INJ 2 MG/ML 2 ML VIAL IV SCH (14:00)
--- NOTE | 2020-09-05 15:18 | Discharge Summary ---
Date of Service September 05, 2020 Admission HPI Per Admitting Provider The patient is a 64-year-old man with no prior history of nephrolithiasis who presents with acute left flank and groin pain that began approximately 10 PM last evening. He reports apathy to food and some nausea secondary to the extreme pain. Despite multiple doses of narcotics in the ER, the pain is still poorly controlled. He admits to drinking excessively on a daily basis and she uses beer as drink of choice. He has obstructive sleep apnea and reports intermittent compliance with his nasal CPAP mask. He cannot tolerate full facemask. He denies any gross blood in the urine, fevers, chills, chest pain, or shortness of breath. He denies any other UTI symptoms and on initial urinalysis has no evidence of infection in his urine . CT scan of the abdomen pelvis performed in the ER reveals a 3 mm distal left ureteral calculus resulting in mild hydroureteronephrosis with punctate left renal calculus. Hepatic steatosis is also present. He was admitted to the hospitalist service and urology was consulted for definitive stone management. Admission Exam Per Admitting Provider CONSTITUTIONAL: obese, vitals as above, moderate distress EYES: normal conjunctivae, no scleral icterus ENT: external ear and nose normal, mucous membranes dry NECK: trachea midline, no lymphadenopathy RESPIRATORY: clear to auscultation bilaterally, no crackles, rales or wheezes, normal respiratory effort CARDIOVASCULAR: regular rate and rhythm, S1 and 2 heard without murmurs, gallops or rubs, no JVD, no peripheral edema CHEST: inspection of chest was normal (+pacemaker, +port) GASTROINTESTINAL: soft, TTP in LLQ, L CVA tenderness, protuberant but nondistended, no guarding MUSCULOSKELETAL: strength 5/5 throughout, head is normocephalic and atraumatic SKIN: warm and dry NEUROLOGIC: CN 2-12 grossly intact, no sensory deficit, normal cognition, normal speech, no gross focal deficits. PSYCHIATRIC: alert cooperative and oriented to person, place and time. Principal Diagnosis Ureteral colic 2/2 ureteral calculus Discharge Data Allergies Allergy/AdvReac Type Severity Reaction Status Date / Time No Known Allergies Allergy Mild Verified 09/05/20 07:26 Consultations 09/05/20 07:05 ED Decision to Admit Stat 09/05/20 10:07 Consult Urology Routine Ordered Studies Laboratory Results WBC 8.15 K/uL (4.8-10.8) 09/05/20 05:01 RBC 5.09 M/uL (4.7-6.1) 09/05/20 05:01 Hgb 16.3 g/dL (14.0-18.0) 09/05/20 05:01 Hct 44.2 % (42-52) 09/05/20 05:01 MCV 86.8 fL (80-100) 09/05/20 05:01 MCH 32.0 pg (25-34) 09/05/20 05:01 MCHC 36.9 g/dL (32-36) H 09/05/20 05:01 RDW Std Deviation 41.1 fL (36.4-46.3) 09/05/20 05:01 RDW Coeff of [place] 12.8 % (11.5-14.5) 09/05/20 05:01 Plt Count 272 K/uL (130-400) 09/05/20 05:01 MPV 9.7 fL (7.4-10.4) 09/05/20 05:01 Immature Gran % (Auto) 0.2 % 09/05/20 05:01 Neut % (Auto) 81.9 % 09/05/20 05:01 Lymph % (Auto) 10.1 % 09/05/20 05:01 [place] % (Auto) 7.2 % 09/05/20 05:01 Eos % (Auto) 0.4 % 09/05/20 05:01 Baso % (Auto) 0.2 % 09/05/20 05:01 Neut # (Auto) 6.67 K/uL (1.4-6.5) H 09/05/20 05:01 Lymph # (Auto) 0.82 K/uL (1.2-3.4) L 09/05/20 05:01 [place] # (Auto) 0.59 K/uL (0.11-0.59) 09/05/20 05:01 Eos # (Auto) 0.03 K/uL (0-0.5) 09/05/20 05:01 Baso # (Auto) 0.02 K/uL (0-0.2) 09/05/20 05:01 Immature Gran # (Auto) 0.02 K/uL (0.00-0.02) 09/05/20 05:01 Sodium 137 mmol/L (136-145) 09/05/20 05:01 Potassium 4.4 mmol/L (3.5-5.1) 09/05/20 05:01 Chloride 105 mmol/L (98-107) 09/05/20 05:01 Carbon Dioxide 26 mmol/L (21-32) 09/05/20 05:01 Anion Gap 6.0 (3-11) 09/05/20 05:01 BUN 13 mg/dl (7-18) 09/05/20 05:01 Creatinine 1.17 mg/dl (0.6-1.4) 09/05/20 05:01 Est Cr Clr Drug Dosing 87.1 ml/min 09/05/20 05:01 Est GFR ( Amer) 76.4 09/05/20 05:01 Est GFR (Non-Af Amer) 66.0 09/05/20 05:01 BUN/Creatinine Ratio 11.4 (10-20) 09/05/20 05:01 Glucose 131 mg/dl (70-99) H 09/05/20 05:01 Calcium 9.1 mg/dl (8.5-10.1) 09/05/20 05:01 Total Bilirubin 1.0 mg/dl (0.2-1) 09/05/20 05:01 AST 42 U/L (15-37) H 09/05/20 05:01 ALT 79 U/L (12-78) H 09/05/20 05:01 Alkaline Phosphatase 86 U/L (45-117) 09/05/20 05:01 Total Protein 9.1 gm/dl (6.4-8.2) H 09/05/20 05:01 Albumin 4.3 gm/dl (3.4-5.0) 09/05/20 05:01 Globulin 4.8 gm/dl (2.5-4.0) H 09/05/20 05:01 Albumin/Globulin Ratio 0.9 (0.9-2) 09/05/20 05:01 Urine Color Yellow 09/05/20 05:01 Urine Appearance Clear (Clear) 09/05/20 05:01 Urine pH 5.5 (4.5-7.5) 09/05/20 05:01 Ur Specific [place] 1.018 (1.000-1.030) 09/05/20 05:01 Urine Protein Negative (Negative) 09/05/20 05:01 Urine Glucose (UA) Negative (Negative) 09/05/20 05:01 Urine Ketones 1+ (Negative) H 09/05/20 05:01 Urine Blood 2+ (Negative) H 09/05/20 05:01 Urine Nitrite Negative (Negative) 09/05/20 05:01 Urine Bilirubin Negative (Negative) 09/05/20 05:01 Urine Urobilinogen Negative (Negative) 09/05/20 05:01 Ur Leukocyte Esterase Negative (Negative) 09/05/20 05:01 Urine WBC (Auto) 1-5 /hpf (0-5) 09/05/20 05:01 Urine RBC (Auto) >30 /hpf (0-4) H 09/05/20 05:01 U Hyaline Cast (Auto) 0 /lpf (0-5) 09/05/20 05:01 U Epithel Cells (Auto) 0-5 /lpf (0-5) 09/05/20 05:01 Urine Bacteria (Auto) Negative (Negative) 09/05/20 05:01 COVID-19 Eval Order [facility]Rsv at [facility] 09/05/20 07:15 SARS-CoV-2 (PCR) NEGATIVE (Negative) 09/05/20 07:15 Influenza Type A (PCR) Negative (Neg) 09/05/20 07:15 Influenza Type B (PCR) Negative (Neg) 09/05/20 07:15 RSV (RT-PCR) Negative (Neg) 09/05/20 07:15 Impressions Abdomen/Pelvis CT 09/05/20 05:01 CT OF THE ABDOMEN AND PELVIS WITHOUT CONTRAST CLINICAL HISTORY: Left lower quadrant abdominal pain. COMPARISON STUDY: CT of the abdomen and pelvis March 28, 2010. TECHNIQUE: Axial images of the abdomen and pelvis were obtained without IV c ontrast. Images were reviewed in the axial, sagittal, and coronal planes. Automated exposure control was utilized for the study. A dose lowering technique was utilized adhering to the principles of ALARA. FINDINGS: A calcified granuloma within the left lower lobe is incidentally noted. There is a small hiatal hernia. A 3 mm distal left ureteral calculus just proximal to the ureterovesical junction results in mild left hydroureteronephrosis with perinephric and periureteral infiltration. There is a punctate left calculus. No right hydronephrosis is noted. A 2.7 cm water attenuation left renal lesion is suboptimally assessed on this unenhanced exam but favors a cyst. There is no biliary ductal dilatation status post cholecystectomy. Hepatic steatosis is noted. There is no evidence for a bowel obstruction. Colonic diverticulosis is noted without evidence for acute diverticulitis. The appendix is normal. There is no lymphadenopathy. There is no ascites. No suspicious osseous lesions are identified within the visualized skeletal structures. IMPRESSION: 1. 3 mm distal left ureteral calculus results in mild hydroureteronephrosis. 2. Punctate left renal calculus. 3. Hepatic steatosis. ACT 112: Negative or not required by law. Electronically signed by: Theo Nunez M.D. 09/05/2020 8:21 AM Hospital Course (1) Ureteral colic: Ureteral colic secondary to left ureteral calculus, approximately [address] scan with hydronephrosis. No evidence of MAX or urinary tract infection. Symptom onset last night approximately 10 PM. No history of kidney stones in the past. Patient is a significant alcohol user and drinks 2 green teas daily. Urology was consulted and recommended watchful waiting with maximal expulsion therapy. He was given IVF and all urine strained. He felt much better with Toradol and decided to continue care at home. (2) Left ureteral calculus: Plan as above, Flomax added, continue his IV fluids, strain all urine. Pain medications and antiemetics as needed. (3) EtOH dependence: Alcohol withdrawal monitoring on floor with ativan prn-no evidence of withdrawal during this hospital stay (4) GERD (gastroesophageal reflux disease): Protonix daily (5) ZAIDA (obstructive sleep apnea): Uses nasal CPAP at home. Cannot tolerate full facemask. Offered to have home CPAP brought in, but patient declined. (6) Obesity: Lifestyle modifications recommended to decrease adipose tissue and increased lean muscle mass. At time of discharge he was hemodynamically stable and afebrile and tolerating PO. He was mentating and ambulating at baseline and had a significant improvement in his pain since the time of admission. He was sent home in stable condition with close primary care followup recommended. Total Time Total Time Spent Total Time Spent (In Minutes): 60 Total Time Includes: Examination of the Patient, Discharge Planning, Medication Reconciliation and Communication With Other Providers Discharge Plan Discharge Items Patient Disposition: Home - Self-Care Reason For Visit: URETERAL COLIC 2/2 URETERAL CALCULUS Discharge Diagnosis: Ureteral colic 2/2 ureteral calculus Condition on Discharge: Good Activity: Resume your previous activity Non-emergency contact: Primary Care Provider Call non-emergency contact if: you have any medication questions, your symptoms worsen, your pain is not controlled, your pain is worsening and you have a fever Follow-up/Referrals: Reji Whitehead MD [Primary Care Provider] - Diet: Regular Addtl Attending Provider Instructions: It is recommended that you continue to stay very hydrated; avoiding caffeinated drinks such as coffee, cokes, tea or alcohol would be helpful. Please strain all urine with the urine strainer provided to you at discharge. If you collect a stone, please reach out to your primary care provider or Urologist regarding a stone analysis in the lab. You are being discharged on Flomax which will help to expel the stone. You may also continue with Ibuprofen or Tylenol as needed for pain and you are being given Tylenol with codeine in case the pain is severe at home. Please do not exceed more than 3000mg of Tylenol (acetaminophen) in 24 hours. If you are unable to pass your kidney stone spontaneously, please seek medical attention. It is recommended that you follow-up with your PCP within the next week and have a BASIC METABOLIC PANEL (non-fasting bloodwork) which may be ordered by your PCP. If there is evidence of kidney failure or infection, you will need more urgent Urologic intervention. The Urologist who saw you in the hospital was Dr. Cas Zafar from [facility]. If you need to contact him with questions, please call the office at . It was a pleasure taking care of you! Please call if you have any questions or problems. You can reach a [facility] hospitalist on duty at [facility] 24 hours a day by calling [phone]. Take care of yourself. Tootie Munroe DO [facility] Pending Studies at Discharge: No Stand-Alone Forms: My [facility] Medications and DC Order Prescriptions: New tamsulosin 0.4 mg Capsule 0.4 mg PO QAM Qty: 30 RF: 0 ibuprofen 800 mg tablet 800 mg PO Q8H PRN (Reason: pain) Qty: 30 RF: 0 acetaminophen-codeine 300-30 mg tablet 1 tab PO Q8H PRN (Reason: severe pain) Qty: 10 RF: 0 Continued omeprazole 20 mg Tablet,Disintegrat, Delay Rel 20 mg PO UD PRN (Reason: Acid Reflux) RF: 0 Discharge Orders: Discharge Order (Routine); Ordered 09/05/20 Ordered By: Tootie Hutton/Other Patient Handouts: ED Kidney Stone w/ Colic Admission Data Admit Date/Time: 09/05/20 07:47 Attending Provider: Tootie Munroe Admit Provider: Tootie Munroe Primary Care Provider: Reji Whitehead Other Providers: Cas Zafar ; Tootie Munroe Other Interventions: Discharge Summary Assessment (RN) Last Done: 09/05/20 15:58
== END 2020-09-05 17:22 | disposition home or self-care (01) | DRG 694 ==
LOC: ED 04:48 → 3N 07:47